=== PATIENT | male | born 1935 | race Two or more races ===

== ENCOUNTER 2021-06-28 03:22 | Inpatient (IN) | payer OTHER ==
[~2021-06-28] VITALS: Ht 182.9 cm; Wt 64.0 kg
[2021-06-28] MEDS ORDERED: VANCOMYCIN IV 1,000 MG in IV DEXTROSE 5% 250 ML IV ONE (03:30)
[2021-06-28] MEDS ORDERED: IV NORMAL SALINE 1000 ML BAG IV ONE (03:30)
[2021-06-28] MEDS ORDERED: PIPERACILLIN SODIUM/TAZOBACTAM 3.375 G in IV DEXTROSE 5% 50 ML IV ONE (03:30)
[2021-06-28] MEDS ORDERED: IV NS 1000 ML 1,000 ML IV ONE (03:30)
--- NOTE | 2021-06-28 03:30 | NUR ---
PT BIB [facility] 78 FOR SOB AND FEVER [facility]. PT HAS HX OF DEMENTIA. PT CAME IN WITH G-TUBE AND LU CATH. TEMP OF 102.[address] CHEW AT BEDSIDE.
[2021-06-28] MEDS ORDERED: VANCOMYCIN IV 200 ML ONE (03:43)
[2021-06-28] MEDS ORDERED: PIPERACILLIN/TAZOBACTAM/D5W 50 ML IV ONE (03:43)
[2021-06-28 04:07] LABS: HEMATOCRIT 32.5 % (36.7-47.1); MEAN CORPUSCULAR VOLUME 87.3 fL (73.0-96.2); PLATELET COUNT (AUTO) 316 K/uL (152-348)
[2021-06-28 04:10] LABS: CARBON DIOXIDE 33 mmol/L (21-32); CHLORIDE 109 mmol/L (98-107); CREATININE 1.1 mg/dL (0.6-1.3); GLUCOSE 162 mg/dL (74-106); POTASSIUM 4.7 mmol/L (3.5-5.1); UREA NITROGEN, BLOOD 34 mg/dL (7-18)
[2021-06-28 04:31] LABS: *BILIRUBIN,URIN NEGATIVE (NEGATIVE); *BLOOD, URINE 2+ (NEGATIVE); *CLARITY,URINE CLEAR (CLEAR); *COLOR,URINE YELLOW (YELLOW); *KETONES,URINE TRACE (NEGATIVE); LEUKOCYTE ESTERASE ,URINE 1+ (NEGATIVE); NITRITE, URINE NEGATIVE (NEGATIVE); UGLUCOSE NEGATIVE (NEGATIVE)
[2021-06-28 04:48] LABS: BACTERIA,URINE MODERATE /HPF (NONE SEEN); RBC,URINE 50-80 /HPF (0-3); SQUAMOUS EPITHELIAL CELL,UR FEW /HPF (NONE SEEN)
[2021-06-28] MEDS ORDERED: BISA10SU61 RC (04:59)
[2021-06-28] MEDS ORDERED: APIX5TAB4 GT (04:59)
[2021-06-28] MEDS ORDERED: FLUC10SU GT (04:59)
[2021-06-28] MEDS ORDERED: TERA2CAP4 GT (04:59)
[2021-06-28] MEDS ORDERED: MULT-594 GT (04:59)
[2021-06-28] MEDS ORDERED: MIRT-93 GT (04:59)
[2021-06-28] MEDS ORDERED: CHLO50TA24 GT (04:59)
[2021-06-28] MEDS ORDERED: DIGO125T5 GT (04:59)
[2021-06-28] MEDS ORDERED: ACET-2154 GT (04:59)
[2021-06-28] MEDS ORDERED: AMIO200T5 GT (04:59)
[2021-06-28] MEDS ORDERED: DIVA125C2 GT (04:59)
[2021-06-28] MEDS ORDERED: ASCO500C18 GT (04:59)
[2021-06-28] MEDS ORDERED: ZINC50TA65 GT (04:59)
[2021-06-28] MEDS ORDERED: TRAZ-257 GT (04:59)
[2021-06-28] MEDS ORDERED: SENN-261 GT (04:59)
[2021-06-28] MEDS ORDERED: MAGN400O6 GT (04:59)
[2021-06-28] MEDS ORDERED: ACET-2605 GT (04:59)
[2021-06-28] MEDS ORDERED: DOCU100C36 GT (04:59)
[2021-06-28] MEDS ORDERED: NA P133E RC (04:59)
[2021-06-28] MEDS ORDERED: ONDA4TAB5 GT (04:59)
--- NOTE | 2021-06-28 05:00 | NUR ---
PT NOTED TO BE SOILED, PROPER PERINEAL CARE RENDERED. NOW NOTED TO BE CLEAN AND DRY. BED IN LOWEST POSITION FOR SAFETY PRECAUTIONS.
[2021-06-28 05:48] LABS: ABG BASE EXCESS 3.1 mmol/L; ABG HCO3 26.8 mmol/L; ABG PCO2 37.3 mmHg (35.0-45.0); ABG PH 7.474 (7.350-7.450); ABG SITE LEFT RADIAL; ABG TOTAL HEMOGLOBIN 10.3 G/dL (13.5-18.0); MetHb 0.3 % (0.0-1.5); O2Hb 98.2 % (94.0-97.0)
[2021-06-28 06:47] LABS: BAND % (MANUAL) 15 % (0-10); LYMPHOCYTES % (MANUAL) 8 % (20-40); METAMYELOCYTES % 1 % (0-1); MONOCYTES % (MANUAL) 8 % (2-10); NEUTROPHILS % (MANUAL) 68 % (42-75)
--- NOTE | 2021-06-28 07:09 | NUR ---
REPORT GIVEN TO MORNING SHIFT NURSEBANG. PT NOTED TO BE IN BED, BREATHING EVEN AND UNLABORED. VSS.
--- NOTE | 2021-06-28 08:40 | NUR ---
ADMITTED FROM ER AN 85 YO MALE C/C OF SOB, FEVER. ADM DX SEPSIS AWAKE ALERT WHEN RECEIVED FROM ER GURGLING WITH THICK YELLOW SECRETION, REQUIRES IMMEDIATE ORAL CARE AND SUCTIONING. PLACE ON VENTURI MASK AT 40% SATURATING 94-95%, CONTROLLED AFIB ON MONITOR. ROUTINE ADMISSION ASSESSMENT INITIATED. WILL NOTIFY HOSPITALIST OF ADMISSION
[2021-06-28 09:43] VITALS: BP 88/53
[2021-06-28] MEDS ORDERED: ACETAMINOPHEN 325 MG TABLET PO PRN (10:15)
[2021-06-28] MEDS ORDERED: ZOLPIDEM 5 MG TABLET PO PRN (10:15)
[2021-06-28] MEDS ORDERED: ONDANSETRON 4 MG/2 ML VIAL IV PRN (10:15)
--- NOTE | 2021-06-28 10:26 | NUR ---
SEEN BY NIXON BADILLO DNP WITH ORDERS AND CARRIED
[2021-06-28] MEDS: ACETYLCYSTEINE 10% 4ML VIAL NEB SCH ×2 (11:00→13:53)
[2021-06-28] MEDS: IPRATROPIUM BROMIDE 0.5 MG/2.5 ML NEBU NEB SCH ×3 (11:30→20:51)
[2021-06-28] MEDS: IV NS 1000 ML 1,000 ML IV PRN (11:45)
[2021-06-28] MEDS: ENOXAPARIN SODIUM 40 MG/0.4 ML DISP.SYRIN SQ SCH (11:46)
[2021-06-28] MEDS: PIPERACILLIN SODIUM/TAZOBACTAM 3.375 G in IV DEXTROSE 5% 50 ML IV SCH ×2 (12:00→17:30)
[2021-06-28 12:32] VITALS: BP 86/57
[2021-06-28] MEDS: ALBUTEROL SULFATE 1.25 MG/3 ML NEBU NEB PRN (13:53)
--- NOTE | 2021-06-28 14:00 | NUR ---
HOSPITALIST MADE AWARE OF BP 86/24 SAID CONTINUE SARAH OBSERVATION, FREQUENT SUCTIONING AND ORAL CARE.
[2021-06-28] MEDS: VANCOMYCIN IV 750 MG in IV DEXTROSE 5% 250 ML IV SCH (15:40)
[2021-06-28] MEDS ORDERED: ACETAMINOPHEN 650 MG SUPP.RECT RC PRN (15:45)
[2021-06-28 16:03] VITALS: BP 106/50
--- NOTE | 2021-06-28 18:47 | NUR ---
TRANSFERRED TO ER FOR BOARDER STATUS. HOSPITALIST AWARE
--- NOTE | 2021-06-28 18:50 | NUR ---
Received pt. at this time on venti mask 6 liters, with saturation of 99% patient restless agitated, on/off episodes of apnea. HR in the mid-to upper 80's. sbp of 92/50. AAOX0 opening eyes spontaneously. Report will be given to incoming shift by SARAH Ruiz. Addendum: 06/28/[address] BEARD RN Patient on BUE mittens. Patient moving arms circulation patent.
[2021-06-28] MEDS ORDERED: IPRATROPIUM BROMIDE 0.5 MG/2.5 ML NEBU ONE (19:23)
--- NOTE | 2021-06-28 19:30 | NUR ---
Received pt in bed ER1 Confused, agitated, non verbal, on VM at 40% 6L O2 sat adequate >95% Pt constantly coughing, suctioned nasally by RT Drew with thick secretions large in amt. Repositioned pt for comfort. BM X 1 noted, PM care done, kept clean and dry.
[2021-06-28 20:03] VITALS: BP 122/65
--- NOTE | 2021-06-28 20:30 | NUR ---
MRSA result received from [facility] + MRSA. [facility] [employer] Operator made aware, waiting for available isolation room in , Cb GRUBER made aware. Addendum: 06/28/21 at 2146 by SUSAN CARTER RN Entry to wrong pt.
--- NOTE | 2021-06-28 23:24 | NUR ---
Nasal suctioned with thick whitish secretions, O2 sat 100%, Respiration unlabored.
[2021-06-29] VITALS (7 sets, daily range): BP systolic 95–131; BP diastolic 49–81
[2021-06-29] MEDS: IPRATROPIUM BROMIDE 0.5 MG/2.5 ML NEBU NEB SCH ×7 (00:13→22:58)
[2021-06-29] MEDS: ACETYLCYSTEINE 10% 4ML VIAL NEB SCH ×4 (00:14→22:59)
[2021-06-29] MEDS ORDERED: IPRATROPIUM BROMIDE 0.5 MG/2.5 ML NEBU ONE ×5 (00:36→14:52)
[2021-06-29] MEDS ORDERED: ACETYLCYSTEINE 20% 800 MG/4 ML VIAL ONE ×3 (00:38→14:51)
[2021-06-29] MEDS: VANCOMYCIN IV 750 MG in IV DEXTROSE 5% 250 ML IV SCH ×2 (03:48→16:49)
[2021-06-29 05:19] LABS: CREATININE 1.1 mg/dL (0.6-1.3); MAGNESIUM 2.1 mg/dL (1.8-2.4); PHOSPHOROUS 3.5 mg/dL (2.5-4.9); POTASSIUM 4.1 mmol/L (3.5-5.1)
[2021-06-29 05:22] LABS: HEMATOCRIT 29.8 % (36.7-47.1); PLATELET COUNT (AUTO) 267 K/uL (152-348)
[2021-06-29] MEDS: PIPERACILLIN SODIUM/TAZOBACTAM 3.375 G in IV DEXTROSE 5% 50 ML IV SCH ×6 (05:30→23:14)
[2021-06-29] MEDS ORDERED: ENOXAPARIN SODIUM 40 MG/0.4 ML DISP.SYRIN SQ ONE (07:49)
[2021-06-29] MEDS ORDERED: PIPERACILLIN/TAZOBACTAM/D5W 50 ML IV ONE (07:49)
[2021-06-29] MEDS: ENOXAPARIN SODIUM 40 MG/0.4 ML DISP.SYRIN SQ SCH (08:24)
--- NOTE | 2021-06-29 08:30 | NUR ---
Pt.was seen by Dr. Artis and with new orders.
[2021-06-29] MEDS ORDERED: PROPOFOL 100 ML ONE ×2 (08:41→08:42)
--- NOTE | 2021-06-29 10:30 | NUR ---
Pt.was seen by NIXON BADILLO DNP
[2021-06-29] MEDS: REMEDY ESSENTIAL ZINC PASTE 113 GM TP PRN ×2 (13:38→17:29)
[2021-06-29] MEDS ORDERED: ACETYLCYSTEINE 10% 4ML VIAL ONE (14:56)
[2021-06-29] MEDS: IV NS 1000 ML 1,000 ML IV PRN (15:14)
--- NOTE | 2021-06-29 19:30 | NUR ---
Report received. Patient SARAH status, admitted for SEPSIS. Patient intermittent restless, no appropriate verbal responses. RT here; nasal deep suctioning done. With thick beige colored secretions. Turned and repositioned. HOB elevated. GT in place; clamped. With abdominal binder to prevent patient from pulling GT.
--- NOTE | 2021-06-29 20:45 | NUR ---
Report given to Jan; patient transferred to 3rd floor. NAD noted.
[2021-06-29] MEDS: IV 1/2NS 1000 ML 1,000 ML IV PRN (23:13)
[2021-06-30 00:09] VITALS: BP 135/80
[2021-06-30] MEDS: VANCOMYCIN IV 750 MG in IV DEXTROSE 5% 250 ML IV SCH ×3 (01:03→20:22)
[2021-06-30] MEDS: IPRATROPIUM BROMIDE 0.5 MG/2.5 ML NEBU NEB SCH ×6 (02:42→23:43)
[2021-06-30 04:06] VITALS: BP 121/61
[2021-06-30] MEDS: PIPERACILLIN SODIUM/TAZOBACTAM 3.375 G in IV DEXTROSE 5% 50 ML IV SCH ×4 (05:06→23:18)
--- NOTE | 2021-06-30 06:00 | NUR ---
Pt rested well in between care; suctioned oropharyngeal secretions and oral care done; repositioned q2h; needs attended; continue to monitor; continue plan of care.
[2021-06-30 07:00] LABS: HEMATOCRIT 28.3 % (36.7-47.1); MEAN CORPUSCULAR HEMOGLOBIN 28.2 uug (23.8-33.4); PLATELET COUNT (AUTO) 265 K/uL (152-348)
[2021-06-30 07:14] LABS: CREATININE 0.9 mg/dL (0.6-1.3); PHOSPHOROUS 3.2 mg/dL (2.5-4.9); POTASSIUM 3.7 mmol/L (3.5-5.1)
[2021-06-30 07:30] VITALS: BP 115/52
[2021-06-30] MEDS: ACETYLCYSTEINE 10% 4ML VIAL NEB SCH ×3 (07:43→23:44)
--- NOTE | 2021-06-30 08:00 | NUR ---
Received patient laying in bed. Pt on 5L NC with pulse ox machine at bedside, sating at 98%. TELE controlled AFIB at 73. Vital signs stable this morning. GTube is clamped with abd binder in place. Restrains in place because pt pulls lines. Estrada draining clear yellow urine. Sacral redness with foam dressing re enforced. IV on the right upper and forearm remains patent and intact. Safety initiated. Call light within reach. Will continue to monitor.
[2021-06-30] MEDS: ENOXAPARIN SODIUM 40 MG/0.4 ML DISP.SYRIN SQ SCH (08:36)
--- NOTE | 2021-06-30 10:56 | NUR ---
Wound nurse Suzy and I at bedside to check the wound between the patient's scrotum and rectal area. Recommended a surgeon referral, abd and hospital briefs because of drainage. Will continue to monitor. Addendum: 06/30/21 at 1255 by JACQUELINE SHERIFF RN Charted on wrong pt.
[2021-06-30 11:45] VITALS: BP 127/81
--- NOTE | 2021-06-30 13:00 | NUR ---
Rounded with PUBLIC INFORMATION OFFICER Edel Mcmanus. New orders were discussed. Will remain NPO. Will contact [facility] to see what he was on for feeding. Will continue to monitor.
[2021-06-30 16:00] VITALS: BP 140/58
[2021-06-30] MEDS ORDERED: JEVITY 1.2 1000 ML LIQUID GT PRN (16:30)
--- NOTE | 2021-06-30 17:31 | NUR ---
Patient is now on 1L NC sating at 96%. Pt needs frequent suctioning. TELE afib controlled at 80. IV on the right forearm remains patent and intact, running IVF at 60cc/hr. Gtube feeding started, Jevity 1.2 to start at 10 cc. Estrada is draining clear and yellow urine. Sacral wound care provided, on [facility] specialty mattress. No new skin issues noted. All meds given as ordered. All needs mets. Vitals remain WNL. Safety and and comfort measures-maintained t/o shift.
--- NOTE | 2021-06-30 19:30 | NUR ---
Received patient lying in bed. Asleep, arouse to tactile stimuli. non-verbal, confused and disoriented. on 2LPM via NC in place with continuous pulse ox machine at bedside, sating at 99%. Controlled A FIB on tele with HR of 76/min. Gt feeding tolerated at this time with the rate of 10cc/hr. Michael hand mittens in place. Circulation checked to both hands and wrist. Estrada intact and draining via gravity. Sacral with foam dressing intact, clean and dry. Midline on right UA and PIV on right forearm intact and patent. Safety measure initiated. Call light within reach. Continue to monitor.
[2021-06-30 20:05] VITALS: BP 110/59
--- NOTE | 2021-06-30 22:01 | NUR ---
GT feeding tolerated. Only has 5ml residual when aspirated. Flush with 50cc of water. Increase GT feeding to 20cc/hr. Continue to monitor.
[2021-06-30] MEDS: IV 1/2NS 1000 ML 1,000 ML IV PRN (22:54)
[2021-07-01 00:03] VITALS: BP 102/60
--- NOTE | 2021-07-01 02:09 | NUR ---
GT feeding tolerated. No residual noted when aspirated. Flush with 50cc of water. Increase GT feeding to 30cc/hr. Continue to monitor.
[2021-07-01] MEDS: IPRATROPIUM BROMIDE 0.5 MG/2.5 ML NEBU NEB SCH ×5 (03:06→21:17)
[2021-07-01] MEDS: PIPERACILLIN SODIUM/TAZOBACTAM 3.375 G in IV DEXTROSE 5% 50 ML IV SCH ×4 (05:01→23:25)
[2021-07-01 05:05] VITALS: BP 94/60
[2021-07-01] MEDS: VANCOMYCIN IV 750 MG in IV DEXTROSE 5% 250 ML IV SCH ×2 (05:32→16:09)
--- NOTE | 2021-07-01 07:00 | NUR ---
Patient appears comfortable. O2 at 2LPM via NC in place. O2 sat at 99%. Controlled A. Fib on tele with HR of 70/min. Suction secretions PRN. GT feeding/flushing well tolerated. Estrada catheter draining via gravity. Turned and reposition for comfort. Needs assessed and attended to. Safety measure maintained.
[2021-07-01 07:11] LABS: MEAN CORPUSCULAR HEMOGLOBIN 28.3 uug (23.8-33.4); MEAN CORPUSCULAR VOLUME 85.6 fL (73.0-96.2); PLATELET COUNT (AUTO) 306 K/uL (152-348)
[2021-07-01 07:35] LABS: CREATININE 0.9 mg/dL (0.6-1.3); MAGNESIUM 1.9 mg/dL (1.8-2.4); PHOSPHOROUS 2.8 mg/dL (2.5-4.9); POTASSIUM 3.3 mmol/L (3.5-5.1)
[2021-07-01 08:00] VITALS: BP 98/65
--- NOTE | 2021-07-01 08:00 | NUR ---
AWAKE ALERT ABLE TO RESPOND VERBALLY WHEN TOUCH BUT GARBLED. REMAINS AFIB ON MONITOR WITH 2L NC. AFEBRILE. CONTINUE WITH SARAH MONITORING. REQUIRES FREQUENT ORAL SUCTIONING AND ORAL CARE. TURN Q2 HRS, ASPIRATION PRECAUTION. HOB ELEVATED 35-45
[2021-07-01] MEDS: ENOXAPARIN SODIUM 40 MG/0.4 ML DISP.SYRIN SQ SCH (08:37)
[2021-07-01] MEDS: ALBUTEROL SULFATE 1.25 MG/3 ML NEBU NEB PRN (08:49)
[2021-07-01] MEDS: ACETYLCYSTEINE 10% 4ML VIAL NEB SCH ×3 (08:50→23:30)
[2021-07-01] MEDS: POTASSIUM CHLORIDE 50 ML IV SCH ×2 (09:35→10:10)
--- NOTE | 2021-07-01 10:10 | NUR ---
NOTED PATIENT WITH 3 SECONDS PAUSES ON AFIB, NO SS OF DISTRESS, NO C/O PAIN 100% SATURATION ON 2L NC. STRIP NOTED BY DR LUA BUT NO NEW ORDERS. SEE NOTES
[2021-07-01 11:52] VITALS: BP 104/59
--- NOTE | 2021-07-01 14:29 | NUR ---
RESTING COMFORTABLY IN BED NO SS OF DISTRESS ON 2L NC SATURATING 100% COTROLLED AFIB ON MONITOR
[2021-07-01 16:30] VITALS: BP 108/57
--- NOTE | 2021-07-01 16:50 | NUR ---
TOLERATING FEEDING WELL, NO RESIDUAL, CONTINUE WITH IV ANTIBIOTIC ORDERED. REMAINS CONTROLLED AFIB ON MONITOR
--- NOTE | 2021-07-01 19:30 | NUR ---
Received patient lying in bed. Asleep, arouse to verbal and tactile stimuli. Confused and disoriented, but able to make eye contact when spoken to. on 2LPM via NC in place with continuous pulse ox machine at bedside, sating at 99%. Controlled A FIB on tele with HR of 71/min. GT feeding infusing with the rate of 50cc/hr. at this time. Michael hand mittens in place. Circulation checked to both hands and wrist. Estrada intact and draining via gravity. Sacral with foam dressing intact, clean and dry. Midline on right UA intact and patent. IVF infusing. Safety measure initiated. Continue to monitor.
[2021-07-01 20:48] VITALS: BP 91/48
--- NOTE | 2021-07-01 21:00 | NUR ---
GT feeding tolerated. No residual noted when aspirated. Flush with 50cc of water. Increase GT feeding to 60cc/hr. Continue to monitor.
[2021-07-01] MEDS: IV 1/2NS 1000 ML 1,000 ML IV PRN (23:25)
[2021-07-02] VITALS (7 sets, daily range): BP systolic 87–123; BP diastolic 32–69
--- NOTE | 2021-07-02 00:15 | NUR ---
Started new IV line on left wrist #22G
[2021-07-02] MEDS: IPRATROPIUM BROMIDE 0.5 MG/2.5 ML NEBU NEB SCH ×6 (01:13→21:34)
[2021-07-02] MEDS: VANCOMYCIN IV 750 MG in IV DEXTROSE 5% 250 ML IV SCH (01:26)
--- NOTE | 2021-07-02 02:00 | NUR ---
Tolerated GT feeding. No residual noted when aspirated. Flush with 50cc of water. Increase GT feeding to 75cc/hr, goal. Continue to monitor.
[2021-07-02 04:54] LABS: HEMATOCRIT 30.9 % (36.7-47.1); MEAN CORPUSCULAR HEMOGLOBIN 28.2 uug (23.8-33.4); MEAN CORPUSCULAR VOLUME 85.8 fL (73.0-96.2); PLATELET COUNT (AUTO) 348 K/uL (152-348)
[2021-07-02] MEDS: PIPERACILLIN SODIUM/TAZOBACTAM 3.375 G in IV DEXTROSE 5% 50 ML IV SCH ×4 (05:03→23:57)
[2021-07-02 05:09] LABS: CREATININE 0.9 mg/dL (0.6-1.3); PHOSPHOROUS 2.6 mg/dL (2.5-4.9); POTASSIUM 3.6 mmol/L (3.5-5.1)
--- NOTE | 2021-07-02 06:03 | NUR ---
Patient appears comfortable. Calm and pleasant. Smiling when spoken to. Able to make eye contact. In no apparent distress. O2 at 2LPM via NC. O2 sat at 98%. Suction secretions PRN and able to obtain thn secretions. Controlled A. fib on tele with HR of 75/min. Hand mittens remains in place. Circulation on hands/wrist checked. Estrada catheter intact and draining via gravity. Kept clean and dry. Safety measure maintained.
[2021-07-02] MEDS: ACETYLCYSTEINE 10% 4ML VIAL NEB SCH ×2 (07:09→14:42)
[2021-07-02] MEDS: ALBUTEROL SULFATE 1.25 MG/3 ML NEBU NEB PRN ×2 (07:09→14:41)
--- NOTE | 2021-07-02 07:30 | NUR ---
Patient resting in bed. Easily arousable. Responsive to his own name. Emmy thrasher on the monitor with heart rate in the 70s. Nasal cannula at 2L saturating 98%. IV site in left wrist 22G running 1/2 NS at 60mL/hr. Estrada draining by gravity. Safety precautions in place. Call light within reach. Will continue to monitor. Addendum: 07/02/21 at 1000 by MARY BOSCH RN Mittens on patient bilaterally with palpable pulses.
[2021-07-02] MEDS: ENOXAPARIN SODIUM 40 MG/0.4 ML DISP.SYRIN SQ SCH (08:46)
--- NOTE | 2021-07-02 09:54 | NUR ---
ENVIRONMENTAL SCIENTIST student, [place], who is working with [place] at the bedside assessing patient.
--- NOTE | 2021-07-02 10:50 | NUR ---
Patient working with physical therapy; able to sit up assisted on the bed.
--- NOTE | 2021-07-02 17:54 | NUR ---
Informed Edel Mcmanus NP about patient's hypotensive episodes. However, BP recovers to normal shortly after. Asked for vasopressor for overnight if hypotensive episode were to sustain. Edel advised that no vasopressors are needed for now but to initiate 500mL NS bolus.
[2021-07-02] MEDS ORDERED: VANCOMYCIN IV 750 MG in IV DEXTROSE 5% 250 ML IV SCH (18:00)
[2021-07-02] MEDS ORDERED: IV NORMAL SALINE 500 ML BAG IV ONE (18:15)
--- NOTE | 2021-07-02 19:11 | NUR ---
Patient AO x 1. A. fib on the monitor with episodes of bradycardia, heart rate in the 30/40s. Patient also has episodes of hypotension but physician made aware. Patient was bolused with 500mL of NS. Blood pressure within normal limits, at this time, 115/62. Requires frequent suctioning. Patient able to expectorate secretions. Oral care rendered Q2H. G-Tube flushing, patent, and intact, with Jevity 1.2 running at 75mL/hr. Minimal residual noted. Sacral area kept clean and dry with Mepilex enforced. Patient still requires bilateral mittens at this time due to pulling of lines. Circulation within normal and palpable pulses on upper extremities. Will endorse to oncoming shift.
--- NOTE | 2021-07-02 19:30 | NUR ---
ID in the unit to see patient. Aware of respiratory culture acinetobacter growth.
[2021-07-02] MEDS: COLISTIMETHATE SODIUM 150 MG VIAL INH SCH (21:35)
[2021-07-02] MEDS: IV 1/2NS 1000 ML 1,000 ML IV PRN (23:52)
[2021-07-03] VITALS (8 sets, daily range): BP systolic 91–116; BP diastolic 59–75
[2021-07-03] MEDS: IPRATROPIUM BROMIDE 0.5 MG/2.5 ML NEBU NEB SCH ×7 (00:36→23:00)
[2021-07-03] MEDS: ACETYLCYSTEINE 10% 4ML VIAL NEB SCH ×4 (00:36→23:03)
[2021-07-03] MEDS: JEVITY 1.2 1000 ML LIQUID GT PRN (04:48)
[2021-07-03 05:06] LABS: HEMATOCRIT 29.6 % (36.7-47.1); MEAN CORPUSCULAR HEMOGLOBIN 27.8 uug (23.8-33.4); MEAN CORPUSCULAR VOLUME 86.1 fL (73.0-96.2); PLATELET COUNT (AUTO) 361 K/uL (152-348)
[2021-07-03 05:12] LABS: CREATININE 0.9 mg/dL (0.6-1.3); PHOSPHOROUS 2.7 mg/dL (2.5-4.9); POTASSIUM 3.8 mmol/L (3.5-5.1)
[2021-07-03] MEDS: PIPERACILLIN SODIUM/TAZOBACTAM 3.375 G in IV DEXTROSE 5% 50 ML IV SCH (06:09)
[2021-07-03] MEDS: COLISTIMETHATE SODIUM 150 MG VIAL INH SCH ×2 (07:36→19:49)
--- NOTE | 2021-07-03 08:13 | NUR ---
Dr. Sanchez at the bedside assessing patient. No new orders noted at this time.
[2021-07-03] MEDS: ENOXAPARIN SODIUM 40 MG/0.4 ML DISP.SYRIN SQ SCH (08:29)
--- NOTE | 2021-07-03 14:55 | NUR ---
Patient left against medical advice. Risks were explained to the patient including worsening of condition/ illness. Benefits of continuing hospital stay were explained to the patient. Patient states that we can't hold him against here against his will. PICC line removed. Belongings brought with patient. Dr Sloan informed. Patient escorted out of the facility. Addendum: 07/03/21 at 1532 by MARY BOSCH RN wrong patient
[2021-07-03] MEDS: PIPERACILLIN SODIUM/TAZOBACTAM 3.375 G in IV DEXTROSE 5% 100 ML IV SCH ×2 (15:38→21:54)
--- NOTE | 2021-07-03 20:00 | NUR ---
Pt resting on bed; remains pulling lines when off mittens; placed back on mittens; kept HOB; aspiration precautions maintained; repositioned; GTF no residuals observed; oral care done.
[2021-07-03] MEDS: IV 1/2NS 1000 ML 1,000 ML IV PRN (20:18)
[2021-07-03] MEDS: REMEDY ESSENTIAL ZINC PASTE 113 GM TP PRN (20:31)
[2021-07-04 00:08] VITALS: BP 118/70
[2021-07-04] MEDS: IPRATROPIUM BROMIDE 0.5 MG/2.5 ML NEBU NEB SCH ×5 (03:47→18:34)
[2021-07-04 04:15] VITALS: BP 113/71
[2021-07-04] MEDS: PIPERACILLIN SODIUM/TAZOBACTAM 3.375 G in IV DEXTROSE 5% 100 ML IV SCH ×3 (06:22→21:57)
[2021-07-04] MEDS: ACETYLCYSTEINE 10% 4ML VIAL NEB SCH ×2 (07:18→15:04)
[2021-07-04 07:21] LABS: CREATININE 0.9 mg/dL (0.6-1.3); PHOSPHOROUS 3.1 mg/dL (2.5-4.9); POTASSIUM 3.8 mmol/L (3.5-5.1)
--- NOTE | 2021-07-04 07:30 | NUR ---
received change of shift on pt, pt in bed, on 2L NC needing aggressive suctioning to alleviate secretions. G tube in place, no residual noted, Jevity at 75 ml/hr for 22hrs. pt has shipley in place, draining well.IV access on upper arm midline 18g. call light within reach, bed low and locked.
[2021-07-04 08:48] VITALS: BP 115/68
[2021-07-04] MEDS: ENOXAPARIN SODIUM 40 MG/0.4 ML DISP.SYRIN SQ SCH (08:54)
[2021-07-04] MEDS: JEVITY 1.2 1000 ML LIQUID GT PRN (08:55)
[2021-07-04] MEDS: COLISTIMETHATE SODIUM 150 MG VIAL INH SCH ×2 (11:13→18:35)
[2021-07-04 11:46] VITALS: BP 100/63
[2021-07-04] MEDS: IV 1/2NS 1000 ML 1,000 ML IV PRN (14:31)
[2021-07-04 14:53] LABS: HEMATOCRIT 29.6 % (36.7-47.1); MEAN CORPUSCULAR HEMOGLOBIN 27.9 uug (23.8-33.4); MEAN CORPUSCULAR VOLUME 84.9 fL (73.0-96.2); PLATELET COUNT (AUTO) 360 K/uL (152-348)
[2021-07-04 15:35] VITALS: BP 100/61
--- NOTE | 2021-07-04 19:25 | NUR ---
Patient in resting in bed comfortably,awake . HOB elevated.O2 at 2LPM via NC. O2 sat at 95%. Aspiration precaution observed at all times.Gtube in place with Gt feeding infusing well.No residual noted.Suction secretions PRN .Controlled A. fib on tele with HR of 68min. Hand mittens remains in place. Estrada catheter intact draining well. Will continue to monitor.
--- NOTE | 2021-07-04 19:31 | NUR ---
report given to nightman RN, pt sitting upright in bed resting, pt on 2L nasal cannula, bed low and locked, call light within reach, will endorse to nightman.
[2021-07-04 20:05] VITALS: BP 96/63
[2021-07-05] MEDS: ACETYLCYSTEINE 10% 4ML VIAL NEB SCH ×4 (01:10→23:26)
[2021-07-05] MEDS: IPRATROPIUM BROMIDE 0.5 MG/2.5 ML NEBU NEB SCH ×7 (01:11→23:25)
[2021-07-05 04:20] VITALS: BP 97/52
[2021-07-05] MEDS: PIPERACILLIN SODIUM/TAZOBACTAM 3.375 G in IV DEXTROSE 5% 100 ML IV SCH ×3 (05:13→21:01)
--- NOTE | 2021-07-05 06:30 | NUR ---
PATIENT SLEPT INTERMITTENTLY ABLE TO RESPOND VERBALLY HOWEVER GARBLED . REMAINS AFIB ON MONITOR WITH 2L NC.CONTINUE WITH SARAH MONITORING. ORAL SUCTIONING AND ORAL CARE PROVIDED. TURN Q2 HRS, BM X1 PERICARE RENDERED. LU CATHETER IN PLACE.HOB REMAINS ELEVATED. ASPIRATION PRECAUTION. GTUBE SITE CLEAN AND DRY.TOLERATED GTUBE FEEDING. WILL ENDORSED TO ONCOMING SHIFT.
[2021-07-05] MEDS: COLISTIMETHATE SODIUM 150 MG VIAL INH SCH ×3 (07:30→19:45)
[2021-07-05] MEDS: ENOXAPARIN SODIUM 40 MG/0.4 ML DISP.SYRIN SQ SCH (08:50)
[2021-07-05 10:57] LABS: HEMATOCRIT 27.6 % (36.7-47.1); MEAN CORPUSCULAR HEMOGLOBIN 27.6 uug (23.8-33.4); MEAN CORPUSCULAR VOLUME 85.3 fL (73.0-96.2); PLATELET COUNT (AUTO) 371 K/uL (152-348)
[2021-07-05 11:09] LABS: MAGNESIUM 2.1 mg/dL (1.8-2.4); PHOSPHOROUS 3.2 mg/dL (2.5-4.9); POTASSIUM 3.9 mmol/L (3.5-5.1)
[2021-07-05 20:34] VITALS: BP 115/73
--- NOTE | 2021-07-05 21:03 | NUR ---
Patient awake and confused with O2 at 2LPM via NC saturating well. No facial grimaces of discomfort .Gtube in place.No residual noted.HOB elevated. Aspiration precaution.Suction secretions PRN .Controlled A. fib on tele.Midline patent and intact on left upper arm with IVF infusing well.Continue on ATB therapy as ordered.No a/R noted. Bilateral mittens in place .Monitor skin and circulation Estrada catheter intact draining well. Will continue to monitor.
[2021-07-06] MEDS: IV 1/2NS 1000 ML 1,000 ML IV PRN (02:32)
[2021-07-06] MEDS: IPRATROPIUM BROMIDE 0.5 MG/2.5 ML NEBU NEB SCH ×6 (03:24→23:42)
[2021-07-06 04:30] VITALS: BP 103/65
[2021-07-06] MEDS: PIPERACILLIN SODIUM/TAZOBACTAM 3.375 G in IV DEXTROSE 5% 100 ML IV SCH ×3 (05:22→21:25)
--- NOTE | 2021-07-06 07:20 | NUR ---
RECEIVED PATIENT IN BED AWAKE ALERT WITH O2 AT 2L/M BY NASAL CANULA WITH NO SOB AT THIS TIME.TURNED AND REPOSITIONED Q2H ON FIRST STEP CHARY ORDERED REMAIN ON IVF ORDERPATIENT IS NOT IN DISTRESS AT THIS TIME WILL CONTINUE TO OBSERVE.ED WITH NO S/S OF INFILTERATION ON SITE GT FEEDING STOPPED PER SCHEDULE WILL RESUMES ORDERED.
[2021-07-06] MEDS: ACETYLCYSTEINE 10% 4ML VIAL NEB SCH ×3 (07:33→23:42)
[2021-07-06] MEDS: COLISTIMETHATE SODIUM 150 MG VIAL INH SCH ×2 (07:34→18:32)
[2021-07-06] MEDS: ENOXAPARIN SODIUM 40 MG/0.4 ML DISP.SYRIN SQ SCH (08:41)
[2021-07-06 12:00] VITALS: BP 108/62
[2021-07-06 16:40] VITALS: BP 107/62
[2021-07-06] MEDS: JEVITY 1.2 1000 ML LIQUID GT PRN (17:14)
--- NOTE | 2021-07-06 19:00 | NUR ---
Received patient on bed, alert, not in respiratory distress, with bilateral soft mittens on, patient appears calm at this time. With G-tube feeding jevity 1.2 at 75cc/hr, tolerated well. No signs of pain noted. Safety preacutions provided.
[2021-07-06 20:18] VITALS: BP 92/56
--- NOTE | 2021-07-07 02:30 | NUR ---
Flushing of G-tube with water done, no occlusion noted. Repositioned patient for comfort. No unusualities noted. Patient not in labored breathing.
[2021-07-07 04:10] VITALS: BP 96/62
[2021-07-07] MEDS: IPRATROPIUM BROMIDE 0.5 MG/2.5 ML NEBU NEB SCH ×5 (04:17→21:36)
[2021-07-07] MEDS: PIPERACILLIN SODIUM/TAZOBACTAM 3.375 G in IV DEXTROSE 5% 100 ML IV SCH (05:11)
[2021-07-07 06:45] LABS: HEMATOCRIT 28.7 % (36.7-47.1); MEAN CORPUSCULAR HEMOGLOBIN 28.9 uug (23.8-33.4); MEAN CORPUSCULAR VOLUME 85.2 fL (73.0-96.2); PLATELET COUNT (AUTO) 365 K/uL (152-348)
[2021-07-07 06:58] LABS: MAGNESIUM 2.4 mg/dL (1.8-2.4); PHOSPHOROUS 3.1 mg/dL (2.5-4.9); POTASSIUM 4.1 mmol/L (3.5-5.1)
[2021-07-07] MEDS: ACETYLCYSTEINE 10% 4ML VIAL NEB SCH ×2 (07:17→15:11)
[2021-07-07] MEDS: COLISTIMETHATE SODIUM 150 MG VIAL INH SCH ×2 (07:17→21:36)
--- NOTE | 2021-07-07 07:30 | NUR ---
RECEIVED PATIENT IN BED WITH EYES CLOSED OPENS EYES WHEN TOUCHED ON O2 AT 2L/M BY NASAL CANULA WITH NO S/S OF SHORTNESS OF BREATH AT THIS TIME HOB UP WITH GT INTACT WITH FEEDING STOPPED PER FEEDING SCHEDULE AT THIS TIME HAS NEREIDA MITTENS TO PREVENT HIM FROM PULLING OUT TUBES CIRCULATION CHECKED AND RELEASED MID LINE IS INTACT WITH IVF AND IV ATB ORDERED WITH NO S/S OF INFILTERATION ON SITE. LU CATH TO GRAVITY DRAINAGE WITH NO S/S OF INFILTERATION ON SITE. TURNED AND REPOSITIONED MADE COMFORTABLE WILL CONTINUE TO OBSERVE.
[2021-07-07] MEDS: ENOXAPARIN SODIUM 40 MG/0.4 ML DISP.SYRIN SQ SCH (09:14)
--- NOTE | 2021-07-07 09:57 | NUR ---
PATIENT SEEN AND EXAMINED BY DR CARBAJAL WITH NEW ORDERS AND NOTED.
[2021-07-07 12:00] VITALS: BP 119/73
[2021-07-07] MEDS: JEVITY 1.2 1000 ML LIQUID GT PRN (13:45)
[2021-07-07 15:57] VITALS: BP 118/67
--- NOTE | 2021-07-07 18:00 | NUR ---
PATIENT TOLERATED GT FEEDINGS ORDERED WITH NO REGURGITATION OR EMESIS CONTINUE TO REQUIRE NEREIDA MITTENS TO PREVENT HIM FROM PULLING OUT TUBES CHECKED Q2H FOR ADEQUATE CIRCULATION MADE COMFORTABLE WILL CONTINUE TO OBSERVE.
[2021-07-07 20:17] VITALS: BP 97/66
[2021-07-08] MEDS: IPRATROPIUM BROMIDE 0.5 MG/2.5 ML NEBU NEB SCH ×5 (02:40→15:40)
[2021-07-08 04:32] VITALS: BP 114/58
[2021-07-08 06:51] LABS: HEMATOCRIT 32.1 % (36.7-47.1); MEAN CORPUSCULAR HEMOGLOBIN 28.3 uug (23.8-33.4); MEAN CORPUSCULAR VOLUME 86.1 fL (73.0-96.2); PLATELET COUNT (AUTO) 368 K/uL (152-348)
[2021-07-08 07:21] LABS: CREATININE 1.1 mg/dL (0.6-1.3); MAGNESIUM 2.3 mg/dL (1.8-2.4); PHOSPHOROUS 3.3 mg/dL (2.5-4.9); POTASSIUM 5.1 mmol/L (3.5-5.1)
[2021-07-08] MEDS: ALBUTEROL SULFATE 1.25 MG/3 ML NEBU NEB PRN ×2 (08:48→15:40)
[2021-07-08] MEDS: ACETYLCYSTEINE 10% 4ML VIAL NEB SCH ×3 (08:48→15:40)
[2021-07-08] MEDS: COLISTIMETHATE SODIUM 150 MG VIAL INH SCH (08:57)
[2021-07-08] MEDS ORDERED: APIXABAN 5 MG TABLET GT SCH (09:00)
[2021-07-08] MEDS: JEVITY 1.2 1000 ML LIQUID GT PRN (09:38)
[2021-07-08 11:57] VITALS: BP 132/71
--- NOTE | 2021-07-08 15:12 | NUR ---
report given to Carolynn from [facility]
[2021-07-08 15:41] VITALS: BP 137/69
--- NOTE | 2021-07-08 17:17 | NUR ---
patient discharged to [facility], packet given to news video editor for discharge instructions, Midline removed, ID removed, stable condition. g-tube intact, with positive placement.
== END 2021-07-08 16:46 | DRG 720 ==
LOC: ER 03:32 → TELE3 08:24 → TELE-TD3 10:18 → TRANSITION 18:33 → TELE-TD3 06-29 20:50 → CCU 07-01 23:59 → TELE-TD3 07-03 11:47 → TELE3 07-05 11:44 → MEDSURG3 07-06 10:32
PROVIDERS: ADMIT Nurse Practitioner Acute Care; ATTEND Nurse Practitioner Acute Care
PROC: 05H633Z Insertion of Infusion Device into Left Subclavian Vein, Percutaneous Approach (ICD-10-PCS; principal; 2021-07-03)
PROC: B547ZZA Ultrasonography of Left Subclavian Vein, Guidance (ICD-10-PCS; principal; 2021-07-03)
DX: A41.9 Sepsis, unspecified organism (principal); J96.01 Acute respiratory failure with hypoxia; J69.0 Pneumonitis due to inhalation of food and vomit; G93.41 Metabolic encephalopathy; R53.2 Functional quadriplegia; N17.9 Acute kidney failure, unspecified; D68.59 Other primary thrombophilia; E86.1 Hypovolemia; E87.0 Hyperosmolality and hypernatremia; I48.20 Chronic atrial fibrillation, unspecified; F03.90 Unspecified dementia, unspecified severity, without behavioral disturbance, psychotic disturbance, mood disturbance, and anxiety; R65.20 Severe sepsis without septic shock; R13.10 Dysphagia, unspecified; Z20.822 Contact with and (suspected) exposure to COVID-19; Z66 Do not resuscitate; Z74.01 Bed confinement status; Z79.01 Long term (current) use of anticoagulants; Z93.1 Gastrostomy status; D64.9 Anemia, unspecified; F20.9 Schizophrenia, unspecified; I25.10 Atherosclerotic heart disease of native coronary artery without angina pectoris
CPT/HCPCS: 36415; 36600; 70030-TC; 71045; 83605; 83735; 84100; 84484; 85025; 87040; 87070; 87077; 87086; 93005; 94640; 94664; 97161; A4663; A6209; A6213; G0378; J0770; J1650; J2543; J3370; J3480; J3490; J3590; J7040; J7050